=== PATIENT | female | born 2005 | race Caucasian/White ===

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

== ENCOUNTER 2024-01-02 18:18 | Emergency (ER) | payer OTHER ==
[2024-01-02 19:58] VITALS: TEMP 98.4
--- NOTE | 2024-01-02 20:22 | ERPHSYRPT ---
- History of Present Illness Time Seen by Provider: 01/02/24 20:10 Source: patient Exam Limitations: no limitations Patient Subjective Stated Complaint: sneezing, headache, R ear ache, sorethroat since sunday Triage Nursing Assessment: pt ambualtory to bedl by self , pt alert and oriented x3, skin pwd, pt c/o sneezing, headache, R ear ache, sorethroat since sunday, no exudate noted in throat, pt afebrile, in no respiratory distress at this time. 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 No fever no nausea vomiting no rash. No trauma. Patient has no complaints regarding her . No vaginal discharge. No abdominal or pelvic discomfort. Patient symptoms started 3 days ago. She otherwise feels well. Patient voices no other complaints or concerns at this time. We offered patient Tylenol for discomfort. Patient declined. Portions of this note were created with voice recognition technology. There may be grammatical, spelling, punctuation or sound alike errors Timing/Duration: day(s) (3 days) Severity: moderate Modifying Factors: Improves With: nothing Associated Symptoms: denies symptoms Allergies/Adverse Reactions: No Known Drug Allergies Allergy (Verified 01/02/24 19:49) Home Medications: Pnv No.103/Folic/Om3s/Fish Oil [ Gummies] 1 each PO DAILY 10/10/23 [History] Hx Tetanus, Diphtheria Vaccination/Date Given: Yes Hx Influenza Vaccination/Date Given: Yes Hx Pneumococcal Vaccination/Date Given: No Immunizations Up to Date: Yes Travel Risk - International Travel Have you traveled outside of the country in past 3 weeks: No - Coronavirus Screening Are you exhibiting any of the following symptoms?: Yes Symptoms: Cough: New Onset Close contact with a COVID-19 positive Pt in past 14-21 Days: No - Vaccine Status Have you recieved a Covid-19 vaccination: No - Review of Systems Constitutional: No Symptoms, No Fever, No Chills Eyes: No Symptoms Ears, Nose, & Throat: No Symptoms Respiratory: No Symptoms, No Cough, No Dyspnea Cardiac: No Symptoms, No Chest Pain, No Edema, No Syncope Abdominal/Gastrointestinal: No Symptoms, No Abdominal Pain, No Nausea, No Vomiting, No Diarrhea Genitourinary Symptoms: No Symptoms, No Dysuria Musculoskeletal: No Symptoms, No Back Pain, No Neck Pain Skin: No Symptoms, No Rash Neurological: No Symptoms, No Dizziness, No Focal Weakness, No Sensory Changes Psychological: No Symptoms Endocrine: No Symptoms Hematologic/Lymphatic: No Symptoms Immunological/Allergic: No Symptoms All Other Systems: Reviewed and Negative - Past Medical History Pertinent Past Medical History: Yes Neurological History: No Pertinent History ENT History: No Pertinent History Cardiac History: No Pertinent History Respiratory History: Asthma Endocrine Medical History: No Pertinent History Musculoskeletal History: No Pertinent History GI Medical History: No Pertinent History History: No Pertinent History Psycho-Social History: No Pertinent History Female Reproductive Disorders: No Pertinent History Other Medical History: anemia - Past Surgical History Past Surgical History: No Neuro Surgical History: No Pertinent History Cardiac: No Pertinent History Respiratory: No Pertinent History Gastrointestinal: No Pertinent History Genitourinary: No Pertinent History Musculoskeletal: No Pertinent History Female Surgical History: No Pertinent History - Social History Smoking Status: Never smoker Exposure to second hand smoke: No Drug Use: none Patient Lives Alone: No - Female History Hx Last Menstrual Period: 06/11/23 Hx Now: Yes Gestational Age: 29 weeks - Nursing Vital Signs Nursing Vital Signs: Initial Vital Signs Temperature 98.4 F 01/02/24 19:50 Pulse Rate 93 H 01/02/24 19:50 Respiratory Rate 18 01/02/24 19:50 Blood Pressure 92/68 01/02/24 19:50 O2 Sat by Pulse Oximetry 100 01/02/24 19:50 Pain Scale Pain Intensity 7 - Physical Exam General Appearance: no apparent distress, alert Eye Exam: PERRL/EOMI, eyes nml inspection Ears, Nose, Throat Exam: normal ENT inspection, TMs normal, pharynx normal, moist mucous membranes Neck Exam: normal inspection, non-tender, supple, full range of motion Respiratory Exam: normal breath sounds, lungs clear, airway intact, No respiratory distress Cardiovascular Exam: regular rate/rhythm, normal heart sounds, normal peripheral pulses Gastrointestinal/Abdomen Exam: soft, normal bowel sounds, No tenderness, No mass Back Exam: normal inspection, normal range of motion, No CVA tenderness, No vertebral tenderness Extremity Exam: normal inspection, normal range of motion, pelvis stable Neurologic Exam: alert, oriented x 3, cooperative, normal mood/affect, nml cerebellar function, nml station & gait, sensation nml, No motor deficits Skin Exam: normal color, warm, dry, No rash Lymphatic Exam: No adenopathy SpO2 Interpretation: normal SpO2: 100 O2 Delivery: Room Air - Course Nursing assessment & vital signs reviewed: Yes Lab/Rad Data: Laboratory Results 01/02/24 01/02/24 Range/Units 20:15 20:15 Influenza Type A Ag NEGATIVE (NEGATIVE) Influenza Type B Ag POSITIVE A (NEGATIVE) RSV (PCR) NEGATIVE (NEGATIVE) SARS-CoV-2 (PCR) NEGATIVE (NEGATIVE) Group A Strep Antibody NOT DETECTED (NEGATIVE) - Progress Progress: improved Progress Note: 18-year-old female presents to our ED for evaluation of frontal headache ear pain sore throat x 3 days. Patient declined pain medication. Workup reveals influenza B. Patient outside the therapeutic window for Tamiflu. Patient requested a work note. Patient otherwise feels well. She states he is ready for discharge. She voices no other complaints or concerns at this time. Portions of this note were created with voice recognition technology. There may be grammatical, spelling, punctuation or sound alike errors Complexity problem addressed is moderate No critical care time Complex of data reviewed and analyzed is moderate. Test ordered test reviewed. Results analyzed and correlated clinically with history and physical exam. Risk of complication and or risk of morbidity/mortality of patient management is low Vital stable. At discharge patient requested Tylenol. Tylenol administered. Time spent to discharge patient approximately 20 minutes. Plan of care established for shared decision making. No social determinants of health present impede follow-up. Portions of this note were created with voice recognition technology. There may be grammatical, spelling, punctuation or sound alike errors 01/02/24 22:08 Counseled pt/family regarding: lab results, diagnosis, need for follow-up - Departure Departure Disposition: Home Clinical Impression: Influenza B Condition: Stable Critical Care Time: No Referrals: JAISON MAZARIEGOS MD [Primary Care Provider] - Follow up/PCP as directed Additional Instructions: Discharge/Care Plan KIMBERLY JACOME was seen on 01/02/24 in the Emergency Room. The patient was counseled regarding Diagnosis,Lab results, Imaging studies, need for follow up and when to return to the Emergency Room. Prescriptions given: Discharge Note I have spoken with the patient and/or caregivers. I have explained the patient's condition, diagnosis and treatment plan based on the information available to me at this time. I have answered the patient's and/or caregiver's questions and addressed any concerns. The patient and/or caregivers have as good understanding of the patient's diagnosis, condition and treatment plan as can be expected at this point. The vital signs have been stable. The patient's condition is stable and appropriate for discharge from the emergency department. The patient will pursue further outpatient evaluation with the primary care physician or other designated or consulting physician as outlined in the discharge instructions. The patient and/or caregivers are agreeable to this plan of care and follow-up instructions have been explained in detail. The patient and/or caregivers have received these instruction. The patient/and or caregivers are aware that any significant change in condition or worsening of symptoms should prompt an immediate return to this or the closest emergency department or call 911. Forms: Work/School Release Form
[2024-01-02 21:17] LABS: INFLUENZA A NEGATIVE (NEGATIVE); RESPIRATORY SYNCTIAL VIRUS NEGATIVE (NEGATIVE); SARS-CoV-2 Xpert Express NEGATIVE (NEGATIVE)
[2024-01-02 21:24] LABS: INFLUENZA B POSITIVE (NEGATIVE)
[2024-01-02] MEDS ORDERED: TYLENOL 325 MG ONE (22:13)
[2024-01-02] MEDS: TYLENOL 325 MG PO STA (22:14)
[2024-01-02 22:18] VITALS: BP 94/68; PULSE 101; RESP 16; O2SAT 99
== END 2024-01-02 22:23 | disposition home or self-care (01) ==
LOC: ED 18:18
DX: O99.513 Diseases of the respiratory system complicating pregnancy, third trimester (principal); Z3A.29 29 weeks gestation of pregnancy; J10.1 Influenza due to other identified influenza virus with other respiratory manifestations; R51.9 Headache, unspecified; H92.01 Otalgia, right ear; Z28.310 Unvaccinated for COVID-19
CPT/HCPCS: 0241U; 87651; 99283; A9270-GY

== ENCOUNTER 2024-01-16 09:39 | Observation (INO) | payer OTHER ==
[2024-01-16 10:26] VITALS: BP 125/62; PULSE 94; RESP 18; TEMP 98.4; O2SAT 98
[2024-01-16 10:40] LABS: Amphetamine,Urine NEGATIVE (NEGATIVE); Barbiturate,Urine NEGATIVE (NEGATIVE); Benzodiazepine,Urine NEGATIVE (NEGATIVE); Cocaine,Urine NEGATIVE (NEGATIVE); Methadone,Urine NEGATIVE (NEGATIVE); Opiate,Urine NEGATIVE (NEGATIVE); PCP,Urine NEGATIVE (NEGATIVE); THC,Urine NEGATIVE (NEGATIVE)
[2024-01-16 10:49] LABS: Appearance Cloudy (Clear); Bacteria Moderate /HPF (None Seen); Bilirubin Negative (Negative); Blood Negative (Negative); Epithelial Cells Moderate /HPF (None Seen); Glucose, Urine Negative (Negative); Hyaline Casts NONE SEEN /LPF (0-2); Ketones Negative (Negative); Leukocyte Esterase Large (Negative); Nitrite Negative (Negative); Protein,Urine Dip Trace (Negative); RBC 0-2 /HPF (0-5); Specific Gravity 1.015 (1.005-1.030); Urobilinogen 0.2 mg/dL (0.2); WBC 21-50 /HPF (0-5)
[2024-01-16 10:50] LABS: ADD URINE CULTURE? YES (NO); Budding Yeast Few /HPF (None Seen)
== END 2024-01-16 11:55 | disposition home or self-care (01) ==
LOC: OB 09:39
PROVIDERS: ADMIT Family Medicine; ATTEND Family Medicine
DX: Z34.03 Encounter for supervision of normal first pregnancy, third trimester (principal); Z3A.31 31 weeks gestation of pregnancy
CPT/HCPCS: 80307; 81001; 87086; G0378; G0379

== ENCOUNTER 2024-01-22 15:46 | Emergency (ER) | payer OTHER ==
[2024-01-22 15:52] VITALS: TEMP 97.8
--- NOTE | 2024-01-22 15:55 | ERPHSYRPT ---
- History of Present Illness Time Seen by Provider: 01/22/24 15:50 Source: patient Exam Limitations: no limitations Physician History: Patient is a 18-year-old female currently 33 weeks presents to our ED via EMS with cervical collar in place for evaluation of slip and fall with possible syncope. Patient concerned that she has not felt her baby move since the fall. Patient complains of pain to the right ankle. Patient also has a headache. No neck pain. Symptoms are mild to moderate in intensity. Pain worse with movement of right ankle. Pain improved with rest. Patient voices no other complaints or concerns at this time. Portions of this note were created with voice recognition technology. There may be grammatical, spelling, punctuation or sound alike errors Timing/Duration: today Severity: moderate Modifying Factors: Improves With: nothing Associated Symptoms: denies symptoms Allergies/Adverse Reactions: No Known Drug Allergies Allergy (Verified 01/02/24 19:49) Home Medications: Pnv No.103/Folic/Om3s/Fish Oil [ Gummies] 1 each PO DAILY 10/10/23 [History] Cephalexin Mh 500 mg [Keflex 500 mg] 500 mg PO Q6H 01/22/24 [History] Hx Tetanus, Diphtheria Vaccination/Date Given: Yes Hx Influenza Vaccination/Date Given: Yes Hx Pneumococcal Vaccination/Date Given: No Travel Risk - Vaccine Status Have you recieved a Covid-19 vaccination: No - Review of Systems Constitutional: No Symptoms, No Fever, No Chills Eyes: No Symptoms Ears, Nose, & Throat: No Symptoms Respiratory: No Symptoms, No Cough, No Dyspnea Cardiac: No Symptoms, No Chest Pain, No Edema, No Syncope Abdominal/Gastrointestinal: No Symptoms, No Abdominal Pain, No Nausea, No Vomiting, No Diarrhea Genitourinary Symptoms: No Symptoms, No Dysuria Musculoskeletal: No Symptoms, No Back Pain, No Neck Pain Skin: No Symptoms, No Rash Neurological: No Symptoms, No Dizziness, No Focal Weakness, No Sensory Changes Psychological: No Symptoms Endocrine: No Symptoms Hematologic/Lymphatic: No Symptoms Immunological/Allergic: No Symptoms All Other Systems: Reviewed and Negative - Past Medical History Pertinent Past Medical History: Yes Neurological History: No Pertinent History ENT History: No Pertinent History Cardiac History: No Pertinent History Respiratory History: Asthma Endocrine Medical History: No Pertinent History Musculoskeletal History: No Pertinent History GI Medical History: No Pertinent History History: No Pertinent History Psycho-Social History: No Pertinent History Female Reproductive Disorders: No Pertinent History Other Medical History: anemia - Past Surgical History Past Surgical History: No Neuro Surgical History: No Pertinent History Cardiac: No Pertinent History Respiratory: No Pertinent History Gastrointestinal: No Pertinent History Genitourinary: No Pertinent History Musculoskeletal: No Pertinent History Female Surgical History: No Pertinent History - Social History Smoking Status: Never smoker Exposure to second hand smoke: No Drug Use: none Patient Lives Alone: No - Nursing Vital Signs Nursing Vital Signs: Initial Vital Signs Pulse Rate 86 01/22/24 15:46 Respiratory Rate 28 H 01/22/24 15:46 Blood Pressure 107/65 01/22/24 15:46 O2 Sat by Pulse Oximetry 97 01/22/24 15:46 Pain Scale Pain Intensity 0 - Physical Exam General Appearance: no apparent distress, alert Eye Exam: PERRL/EOMI, eyes nml inspection Ears, Nose, Throat Exam: normal ENT inspection, TMs normal, pharynx normal, moist mucous membranes Neck Exam: normal inspection, non-tender, supple, full range of motion Respiratory Exam: normal breath sounds, lungs clear, airway intact, No respiratory distress Cardiovascular Exam: regular rate/rhythm, normal heart sounds, normal peripheral pulses Gastrointestinal/Abdomen Exam: soft, normal bowel sounds, No tenderness, No mass Back Exam: normal inspection, normal range of motion, No CVA tenderness, No vertebral tenderness Extremity Exam: normal inspection, normal range of motion, pelvis stable Neurologic Exam: alert, oriented x 3, cooperative, normal mood/affect, sensation nml, No motor deficits Skin Exam: normal color, warm, dry, No rash Lymphatic Exam: No adenopathy SpO2 Interpretation: normal SpO2: 97 O2 Delivery: Room Air - Course Nursing assessment & vital signs reviewed: Yes EKG Interpreted by Me: RATE (71), Sinus Rhythm, NORMAL AXIS, NORMAL INTERVALS - Radiology Exams Ankle X-ray Interpretation: Teleradiologist Report (No acute findings on ankle x-ray no fracture dislocations) - CT Exams Head CT Interpretation: Tele-radiologist Report (No acute intracranial pathology observed) Ordered Tests: Active Orders 24 hr Category Date Time Status ANKLE (3 VIEWS) Stat Exams 01/22/24 15:53 Completed HEAD WITHOUT CONTRAST [CT] Stat Exams 01/22/24 15:53 Completed Medication Summary Discontinued Medications Generic Name Dose Route Start Last Admin Trade Name Елена PRN Reason Stop Dose Admin Acetaminophen 975 mg 01/22/24 15:52 01/22/24 16:04 Acetaminophen 325 Mg Tablet PO 01/22/24 15:53 975 mg STAT ONE Administration Acetaminophen Confirm 01/22/24 16:03 Acetaminophen 325 Mg Tablet Administered 01/22/24 16:04 Dose 975 mg .ROUTE .STK-MED ONE - Progress Progress: improved Progress Note: 18-year-old female currently 7 months presents to our ED for evaluation status post fall. Patient arrived via EMS with a cervical collar. C-spine cleared clinically. Patient complains of a headache. CT head negative for acute intracranial pathology. Patient also complained of pain to her right ankle. X-ray negative for fracture dislocation. Patient reassessed. Headache resolved. Patient has no complaints. Will discharge patient at this time to OB as OB is required to observe patient for 4 hours post fall. Plan of care discussed with patient. She voices no other complaints or concerns at this time. Our OB service evaluated patient and performed a bedside ultrasound. Per OB service no abnormalities observed. OB stated "everything is perfect" Portions of this note were created with voice recognition technology. There may be grammatical, spelling, punctuation or sound alike errors Complexity problem addressed is moderate acute complicated No critical care time Complex of data reviewed and analyzed is moderate. Test ordered test reviewed. Results analyzed and correlated clinically with history and physical exam. Risk of complication and or risk of morbidity/mortality of patient management is low Vital stable. Time spent to discharge patient approximately 20 minutes. Plan of care established for shared decision making. No social determinants of health present impede follow-up. Portions of this note were created with voice recognition technology. There may be grammatical, spelling, punctuation or sound alike errors 01/22/24 17:19 Counseled pt/family regarding: diagnosis, need for follow-up, rad results - Departure Departure Disposition: Home Clinical Impression: Fall, Ankle sprain Condition: Stable Critical Care Time: No Referrals: JAISON MAZARIEGOS MD [Primary Care Provider] - Follow up/PCP as directed Additional Instructions: Discharge/Care Plan KIMBERLY JACOME was seen on 01/22/24 in the Emergency Room. The patient was counseled regarding Diagnosis,Lab results, Imaging studies, need for follow up and when to return to the Emergency Room. Prescriptions given: Discharge Note I have spoken with the patient and/or caregivers. I have explained the patient's condition, diagnosis and treatment plan based on the information available to me at this time. I have answered the patient's and/or caregiver's questions and addressed any concerns. The patient and/or caregivers have as good understanding of the patient's diagnosis, condition and treatment plan as can be expected at this point. The vital signs have been stable. The patient's condition is stable and appropriate for discharge from the emergency department. The patient will pursue further outpatient evaluation with the primary care ph ysician or other designated or consulting physician as outlined in the discharge instructions. The patient and/or caregivers are agreeable to this plan of care and follow-up instructions have been explained in detail. The patient and/or caregivers have received these instruction. The patient/and or caregivers are aware that any significant change in condition or worsening of symptoms should prompt an immediate return to this or the closest emergency department or call 911.
[2024-01-22] MEDS ORDERED: TYLENOL 325 MG ONE (16:03)
[2024-01-22] MEDS: TYLENOL 325 MG PO ONE (16:04)
--- NOTE | 2024-01-22 16:48 | XRAY ---
Indication: Status post fall. 33 weeks . Multiple contiguous axial images obtained through the head without contrast. Comparison: None Normal appearing brain parenchyma, ventricles, and bony calvarium. Visualized paranasal sinuses and mastoid air cells are clear. Impression: Normal CT head without contrast exam.
--- NOTE | 2024-01-22 16:48 | XRAY ---
Indication: Pain following fall. 33 weeks . Comparison: None 3 view right ankle demonstrate normal bones, articulation, and soft tissues.
[2024-01-22 17:02] VITALS: RESP 22
[2024-01-22 17:19] VITALS: BP 108/68; PULSE 84; O2SAT 97
== END 2024-01-22 17:21 | disposition home or self-care (01) ==
LOC: ED 15:46 → OB 17:57 → UNDOADMOB 17:57
DX: S93.401A Sprain of unspecified ligament of right ankle, initial encounter (principal); W19.XXXA Unspecified fall, initial encounter; R51.9 Headache, unspecified; M25.571 Pain in right ankle and joints of right foot; Z33.1 Pregnant state, incidental; Z3A.33 33 weeks gestation of pregnancy; Z20.828 Contact with and (suspected) exposure to other viral communicable diseases
CPT/HCPCS: 70450; 73610; 99284; A9270-GY

== ENCOUNTER 2024-01-22 18:27 | Observation (INO) | payer OTHER ==
[2024-01-22 19:15] VITALS: BP 104/63; PULSE 82; RESP 16; O2SAT 98
== END 2024-01-22 19:00 | disposition home or self-care (01) ==
LOC: OB 18:27
PROVIDERS: ADMIT Family Medicine; ATTEND Family Medicine
DX: Z34.03 Encounter for supervision of normal first pregnancy, third trimester (principal); Z3A.33 33 weeks gestation of pregnancy

== ENCOUNTER 2024-02-02 20:23 | Observation (INO) | payer OTHER ==
[2024-02-02 21:05] VITALS: BP 111/69; PULSE 94; RESP 18; TEMP 98.2; O2SAT 98
[2024-02-02 21:25] LABS: Appearance Cloudy (Clear); Bacteria Few /HPF (None Seen); Bilirubin Negative (Negative); Blood Negative (Negative); Epithelial Cells Few /HPF (None Seen); Glucose, Urine Negative (Negative); Hyaline Casts NONE SEEN /LPF (0-2); Ketones Negative (Negative); Leukocyte Esterase Moderate (Negative); Nitrite Negative (Negative); Protein,Urine Dip Trace (Negative); Specific Gravity >=1.030 (1.005-1.030); WBC >100 /HPF (0-5)
[2024-02-02 21:39] LABS: ADD URINE CULTURE? YES (NO); Budding Yeast Rare /HPF (None Seen)
[2024-02-02 22:58] LABS: Amphetamine,Urine NEGATIVE (NEGATIVE); Barbiturate,Urine NEGATIVE (NEGATIVE); Benzodiazepine,Urine NEGATIVE (NEGATIVE); Cocaine,Urine NEGATIVE (NEGATIVE); Methadone,Urine NEGATIVE (NEGATIVE); Opiate,Urine NEGATIVE (NEGATIVE); PCP,Urine NEGATIVE (NEGATIVE); THC,Urine NEGATIVE (NEGATIVE)
== END 2024-02-02 22:30 | disposition home or self-care (01) ==
LOC: OB 20:23
PROVIDERS: ADMIT Family Medicine; ATTEND Family Medicine
DX: Z34.03 Encounter for supervision of normal first pregnancy, third trimester (principal); Z3A.34 34 weeks gestation of pregnancy
CPT/HCPCS: 80307; 81001; 87086; G0378; G0379

== ENCOUNTER 2024-02-25 12:54 | Observation (INO) | payer OTHER ==
[2024-02-25 13:26] VITALS: BP 110/66; PULSE 90; RESP 16
== END 2024-02-25 14:00 | disposition home or self-care (01) ==
LOC: OB 12:54
PROVIDERS: ADMIT Obstetrics & Gynecology; ATTEND Obstetrics & Gynecology
DX: Z34.03 Encounter for supervision of normal first pregnancy, third trimester (principal); Z3A.37 37 weeks gestation of pregnancy
CPT/HCPCS: G0378; G0379